=== PATIENT | female | born 1985 | race Caucasian/White ===

== ENCOUNTER → 2018-08-04 16:15 | Outpatient (CLI) | payer OTHER, SELFPAY ==
[2018-08-10 12:20] LABS: HPV HC, High Risk Negative (Negative)
== END ==
PROVIDERS: Family Provider Family Medicine; PCP Family Medicine; Visit Provider Family Medicine
DX: Z12.4 Encounter for screening for malignant neoplasm of cervix (principal)
CPT/HCPCS: 87624; 88175; G0145

== ENCOUNTER 2019-05-03 16:00 | Outpatient (RCR) | payer OTHER, SELFPAY ==
--- NOTE | 2019-03-21 11:50 | HP.OTEVAL_ITS ---
Patient's Visit Information MANUEL WONG is a 33 year old F, referred to Occupational Therapy by SHERMAN Ordonez, with a diagnosis of right wrist tenosynovitis. Date of Evaluation: 03/20/19 Occupational Therapist: Domi Lewis, CHRISTIANO/Stacy, CHT - Subjective Subjective: This 33 year old female was seen for OT eval with dx of right wrist radial styloid tenosynovitis (deQuervain). Pt states pain in over a week and a half, pt states 3 weeks ago she started with pain- nothing made it feel better- work tasks increased pain- pt went [facility] and arrives to therapy with right soft thumb spica brace on. Pt states she is feeling better but still has pain with ADLS and IADLS. pt would like to return to her PLOF with ADLs, IADls, work tasks and her lifting. 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 Pt will demo an increase in lateral and tripod pinch by 2# to increase pts independent with opening baggies, containers at PLOF by D/C. Goal:: Pt will demo an increase in wrist ROM equal to unaffected wrist to return pt to PLOF with grooming, dressing and home mtg tasks by D/C. Goal:: Pt will report pain no greater than 1/10 with use of affected hand with BADLs and IADLs by d/c. Goal:: Pt will demo understanding of joint protection and ergonomics when performing BADLs, IADLs and work tasks by d/c - Rehabilitation General Assessment: pt demo with right wrist positive WHAT Dequervain testing. Pt limited with ROM and strength limiting pts ind. with ADLs and IADLS. pt painful with resisistive tasks. pt would benefit from skilled OT services 2x week for 6 weeks to return pt to PLOF. Pt would benefit from ed. on PRE, wrist ergo with work and lifitng tasks, ICE, brace. Pt ed. on dequervains and given handout on dx pt demo understanding and agree to POC. Rehabilitation Potential: Good - Anticipated Interventions Anticipated Interventions: A/AAROM/PROM, Strengthening, Modalities, Orthoses, Joint Protection/Energy Conservation, Ergonomic Education - Visit Plan Frequency: 2x /Week Duration: 6 Weeks TEXT: Thank you for the opportunity to evaluate your patient. For Medicare and Medicare HMO plans, please review the plan of care and approve it. It will need to be FAXED BACK to us at [phone] for Medicare purposes. Please let me know if there are questions or concerns regarding this plan of care. Physician Signature: Date:__
== END 2019-05-03 19:00 | disposition home or self-care (01) ==
LOC: OT 16:00
PROVIDERS: Family Provider Family Medicine; PCP Family Medicine; Referring Provider Physician Assistant; Visit Provider Physician Assistant
DX: M65.4 Radial styloid tenosynovitis [de Quervain] (principal)
CPT/HCPCS: 97035; 97140; 97165; 97166

== ENCOUNTER → 2019-11-03 10:24 | Outpatient (CLI) | payer OTHER, SELFPAY ==
[2019-11-03 12:31] LABS: Thyroid Stim Hormone (TSH) 0.65 uIU/mL (0.358-3.74)
== END ==
PROVIDERS: PCP Family Medicine; Visit Provider Family Medicine
DX: R53.83 Other fatigue (principal)
CPT/HCPCS: 36415; 84443

== ENCOUNTER 2020-03-30 08:30 | Outpatient (RCR) | payer OTHER, SELFPAY ==
--- NOTE | 2019-06-07 16:18 | MASS.EVAL_ITS ---
Massage Therapy Evaluation: Initial Evaluation Date: 06/06/2019 SUBJECTIVE: Kendy is a 33 year old female who was referred to the [facility] facility for a massotherapy evaluation by Zuleyka Bullock with the diagnosis of back and neck pain and headaches. She presents today with the symptoms of pain, stiffness and tension in the neck, mid back, low back and hips. Kendy reports having a past medical history of neck and occasional low back pain. She reports that her interscapular region has muscle tension radiating pain up to her neck causing headaches. She reports having gradual improvement with exercise and stretching over the last few days. OBJECTIVE: Upon observation Kendy has some posture issues with her head and shoulders fo rward from the neutral position in sitting and standing. After examination and palpation, I found Kendy to have high muscle tension with tenderness and myofascial restrictions in her sub occipitals, levator scapulae, trapezius, rhomboids, scalenes, and thoracic paraspinals. Her QL?s, lumbar paraspinals, piriformis, glute medius and minimus all were very tight with fascial restrictions, tender points and trigger points. The first treatment consisted of a one hour massage to her upper body with myofascial release, muscle stripping, trigger point compression techniques, and cervical manual traction. ASSESSMENT: I feel that Kendy is a good candidate for massotherapy at this time. She had a favorable response to the first treatment with reduction in her muscle aches, pain and tension. She also had improvement in her cervical flexibility and low back flexibility. PLAN: The plan of care was reviewed with the patient. The patient is to be seen on an as needed basis for a total of ten sessions with the recommendation of once every month for a one hour treatment.
--- NOTE | 2020-04-01 15:10 | DS.PCM_ITS ---
Massage Therapy Discharge Summary: Discharge Date: 04/01/2020 Kendy was seen for a massotherapy evaluation on 06/06/2019 with the diagnosis of back and neck pain and headaches. She was treated with ten sessions of massage therapy consisting of deep pressure soft tissue techniques, myofascial release and trigger point compression to her cervical, thoracic, lower back, lower extremities and hips. Kendy responded well to the therapy by reporting decreased tension and pain throughout her neck, shoulders, lower back and hips. Her goals for therapy were met throughout the treatment sessions. At this time this patient is being discharged from our care at [facility] facility.
== END 2020-03-30 19:00 | disposition home or self-care (01) ==
LOC: MASS 08:30
PROVIDERS: PCP Family Medicine; Referring Provider Family Medicine; Visit Provider Family Medicine
DX: M54.9 Dorsalgia, unspecified (principal); M54.2 Cervicalgia
CPT/HCPCS: 97124

== ENCOUNTER 2021-03-22 08:30 | Outpatient (RCR) | payer OTHER, SELFPAY ==
--- NOTE | 2020-05-20 12:05 | MASS.EVAL_ITS ---
Massage Therapy Evaluation: Initial Evaluation Date: 05/17/2020 SUBJECTIVE: Kendy is a 34 year old female who was referred to the [facility] facility for a massotherapy evaluation by Zuleyka Bullock with the diagnosis of back and neck pain and headaches. She presents today with the symptoms of pain, stiffness and tension in the neck, mid back, low back and hips. Kendy reports having a past medical history of neck and occasional low back pain. She reports that her interscapular region has muscle tension radiating pain up to her neck causing headaches. OBJECTIVE: Upon observation Kendy has some posture issues with her head and shoulders forward from the neutral position in sitting and standing. After examination and palpation, I found Kendy to have high muscle tension with tenderness and myofascial restrictions in her sub occipitals, levator scapulae, trapezius, rhomboids, scalenes, and thoracic paraspinals. Her QL?s, lumbar paraspinals, piriformis, glute medius and minimus all were very tight with fascial restrictions, tender points and trigger points. The first treatment consisted of a one hour massage to her upper body with myofascial release, muscle stripping, trigger point compression techniques, and cervical manual traction. ASSESSMENT: I feel that Kendy is a good candidate for massotherapy at this time. She had a favorable response to the first treatment with reduction in her muscle aches, pain and tension. She also had improvement in her cervical flexibility and low back flexibility. PLAN: The plan of care was reviewed with the patient. The patient is to be seen on an as needed basis for a total of ten sessions with the recommendation of once every month for a one hour treatment.
--- NOTE | 2021-03-22 12:31 | DS.PCM_ITS ---
Massage Therapy Discharge Summary: Discharge Date: 03/22/2021 Kendy was seen for a massotherapy evaluation on 05/17/2020 with the diagnosis of back pain, neck pain and headaches. She was treated with nine sessions of massage therapy consisting of deep pressure soft tissue techniques, myofascial release and trigger point compression to his cervical, thoracic, lower back and hips. Kendy responded well to the therapy by reporting decreased tension and pain throughout her neck, shoulders, lower back, lower extremities and hips. Her goals for therapy were met throughout the treatment sessions. At this time this patient is being discharged from our care at [facility] facility.
== END 2021-03-22 19:00 | disposition home or self-care (01) ==
LOC: MASS 08:30
PROVIDERS: PCP Family Medicine; Referring Provider Family Medicine; Visit Provider Family Medicine
DX: M54.2 Cervicalgia (principal)
CPT/HCPCS: 97124

== ENCOUNTER → 2021-11-26 | Outpatient (CLI) | payer OTHER, SELFPAY ==
[2021-12-03 13:07] LABS: Age Gdln ACOG Testing 30-65 (.)
[2021-12-04 15:12] LABS: HPV APTIMA, High Risk Negative (Negative); HPV Reflexed? YES, CHARGE PATIENT
== END | disposition home or self-care (01) ==
LOC: LABSPEC 11-27 06:34
PROVIDERS: PCP Family Medicine; Visit Provider Family Medicine
DX: Z12.4 Encounter for screening for malignant neoplasm of cervix (principal)
CPT/HCPCS: 87624; 88175; G0145

== ENCOUNTER → 2022-01-29 | Outpatient (CLI) | payer OTHER, SELFPAY ==
[2022-01-29 13:07] LABS: Absolute Lymphocyte Count 1.47 X10^3/uL (0.83-4.51); Absolute Neutrophil Count 2.8 X10^3/uL (2.0-7.7); Basophil# 0.03 X10^3/uL; Basophil% 0.6 % (0-1); Eosinophil# 0.02 X10^3/uL; Eosinophils% 0.4 % (0-5); Hematocrit 38.9 % (37-47); Hemoglobin 11.5 g/dL (12.0-15.0); Lymphocyte # 1.47 X10^3/ul (0.83-4.51); Lymphocyte % 31.1 % (19-41); Mean Corp Hgb Conc 29.6 g/dL (32-36); Mean Corpuscular Hgb 22.9 pg (27.0-32.0); Mean Corpuscular Volume 77.5 fL (81-99); Mean Platelet Vol. 10.3 fl (6.2-12.0); Monocyte# 0.37 X10^3/uL; Monocyte% 7.8 % (0-10); NRBC Flagged by Analyzer 0 % (0-5); Neutrophil # 2.82 X10^3/uL (2.7-7.7); Neutrophil % 59.9 % (47-70); Platelet Count 251 K/mm3 (150-450); RBC Distribution Width CV 18.8 % (11.6-14.6); RBC Distribution Width SD 50.6 fl (35.1-43.9); Red Blood Count 5.02 M/mm3 (4.2-5.4); White Blood Count 4.7 K/mm3 (4.4-11.0)
[2022-01-29 13:09] LABS: Ferritin 5 ng/mL (8-252); Iron 25 ug/dL (50-170); Iron Binding Capacity,Total 520 ug/dL (250-450); PERCENT IRON SATURATION 4.8 % (15.0-55.0)
== END | disposition home or self-care (01) ==
PROVIDERS: PCP Family Medicine; Referring Provider Family Medicine; Visit Provider Family Medicine
DX: D50.9 Iron deficiency anemia, unspecified (principal)
CPT/HCPCS: 36415; 82728; 83540; 83550; 85025

== ENCOUNTER → 2023-02-12 | Outpatient (CLI) | payer OTHER, SELFPAY ==
[2023-02-12 12:07] LABS: Absolute Lymphocyte Count 1.59 X10^3/uL (0.83-4.51); Absolute Neutrophil Count 2.4 X10^3/uL (2.0-7.7); Basophil# 0.04 X10^3/uL; Basophil% 0.9 % (0-1); Eosinophil# 0.02 X10^3/uL; Eosinophils% 0.4 % (0-5); Hematocrit 40.7 % (37-47); Hemoglobin 12.1 g/dL (12.0-15.0); Lymphocyte # 1.59 X10^3/ul (0.83-4.51); Lymphocyte % 35.3 % (19-41); Mean Corp Hgb Conc 29.7 g/dL (32-36); Mean Corpuscular Hgb 24.6 pg (27.0-32.0); Mean Corpuscular Volume 82.7 fL (81-99); Mean Platelet Vol. 11.7 fl (6.2-12.0); Monocyte# 0.42 X10^3/uL; Monocyte% 9.3 % (0-10); NRBC Flagged by Analyzer 0 % (0-5); Neutrophil # 2.39 X10^3/uL (2.7-7.7); Platelet Count 243 K/mm3 (150-450); RBC Distribution Width CV 15.9 % (11.6-14.6); RET-HE 25.8 pg (30-35); Red Blood Count 4.92 M/mm3 (4.2-5.4); Reticulocyte Count 0.96 % (0.5-1.5); White Blood Count 4.5 K/mm3 (4.4-11.0)
[2023-02-12 12:25] LABS: Ferritin 5 ng/mL (8-252); Iron 24 ug/dL (50-170); Iron Binding Capacity,Total 476 ug/dL (250-450)
[2023-02-12 13:01] LABS: Vitamin B12 394 pg/mL (211-911)
== END | disposition home or self-care (01) ==
PROVIDERS: PCP Family Medicine; Referring Provider Family Medicine; Visit Provider Family Medicine
DX: D50.9 Iron deficiency anemia, unspecified (principal)
CPT/HCPCS: 36415; 82607; 82728; 82746; 83540; 83550; 85025; 85045

== ENCOUNTER → 2023-12-21 | Outpatient (CLI) | payer OTHER, SELFPAY ==
[2023-12-21 08:39] LABS: Ferritin 3 ng/mL (8-252); Iron 14 ug/dL (50-170); Iron Binding Capacity,Total 496 ug/dL (250-450); PERCENT IRON SATURATION 2.8 % (15.0-55.0)
== END | disposition home or self-care (01) ==
PROVIDERS: PCP Family Medicine; Referring Provider Family Medicine; Visit Provider Family Medicine
DX: Z00.00 Encounter for general adult medical examination without abnormal findings (principal); D50.9 Iron deficiency anemia, unspecified
CPT/HCPCS: 36415; 82533; 82728; 83540; 83550

== ENCOUNTER → 2024-03-01 | Outpatient (CLI) | payer OTHER, SELFPAY ==
--- NOTE | 2024-03-01 07:15 | BI_ITS ---
MAMMOGRAPHY - BILATERAL SCREENING 3-D TOMOSYNTHESIS REASON FOR EXAM: Female, 38 years old. Routine screening PERTINENT HISTORY: Mother with breast cancer.. TECHNIQUE: 2-D mammograms and 3-D Tomosynthesis of the breast (s) were performed. CAD was performed. COMPARISON: None. Baseline examination. FINDINGS: The breast composition is heterogeneously dense that can obscure small breast masses. Scattered benign punctate calcifications are seen in the right breast. No dense spiculated masses or suspicious microcalcifications are identified. No architectural distortion is identified. There is no skin thickening or retraction. BI/SCRN MAMM (CAD)W/RENATO BILAT IMPRESSION: No mammographic signs of malignancy. Routine yearly mammograms recommended. ASSESSMENT CATEGORY: BIRADS Category 2: Benign. A letter regarding these results will be sent to the patient by the facility within 30 days. FOLLOW UP RECOMMENDATION: Yearly follow up mammogram recommended. (A) Approximately 10% of breast cancers are not detected by mammography. A normal mammogram should not delay biopsy of a clinically suspicious abnormality. Electronically Signed: Joe Howard MD at 8:37 EST ,
== END | disposition home or self-care (01) ==
LOC: OPBI 07:11
PROVIDERS: PCP Family Medicine; Referring Provider Family Medicine; Visit Provider Family Medicine
DX: Z12.31 Encounter for screening mammogram for malignant neoplasm of breast (principal)
CPT/HCPCS: 77063; 77067

== ENCOUNTER → 2024-11-15 | Outpatient (CLI) | payer OTHER, SELFPAY ==
[2024-11-15 10:24] LABS: Ferritin 5 ng/mL (22-378); Iron 23 ug/dL (50-170); Iron Binding Capacity,Total 441 ug/dL (250-450); Iron Binding Capacity,Unsat 418 ug/dL (228-428)
== END | disposition home or self-care (01) ==
LOC: PAVLAB 07:51
PROVIDERS: PCP Family Medicine; Referring Provider Family Medicine; Visit Provider Family Medicine
DX: D50.9 Iron deficiency anemia, unspecified (principal); N93.9 Abnormal uterine and vaginal bleeding, unspecified
CPT/HCPCS: 82728; 83540; 83550; 84443

== ENCOUNTER 2024-12-14 06:52 | Outpatient (CLI) | payer OTHER, SELFPAY ==
--- OUTSIDE RECORDS SUMMARY | 2024-12-14 06:54 | XMS RPT_ITS | CCD ---
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 Gardiner Primary Care Provider Assessment, Health Risk Attending Provider Unava ilable Assessment, Health Risk Referring Provider Deliava iljane Bullock MD, Dr. Gardiner Attending Provider Dr. Zuleyka Bullock MD Referring Provider [phone] Zuleyka Bullock Primary Care Unavailable Zuleyka Bullock Attending Unavailable Zuleyka Bullock Referring Unavailable Zuleyka Bullock Primary Care Unavailable Assessment, Health Risk Attending Unavaila ble Assessment, Health Risk Referring Unavaila ble Zuleyka Bullock Primary Care Unavailable Zuleyka Bullock Attending Unavailable Zuleyka Bullock Referring Unavailable Zuleyka Bullock Primary Care Unavailable Zuleyka Bullock Attending Unavailable Zuleyka Bullock Referring Unavailable Zuleyka Bullock Primary Care Unavailable Zuleyka Bullock Attending Unavailable Zuleyka Bullock Referring Unavailable Medications Current Medications Medication Drug Class(es) Dates Sig (Normalized) Sig (Original) Multivitamin (Daily Multi-Vitamin) tablet (6 sources) Start: 03-08-2019 Multivitamin (Daily Multi-Vitamin) tablet Active 1 {tbl} PO DAILY March 08, 2019 1:00am Start: 03-08-2019 take 1 tablet by maryellen th once daily Multivitamin (Daily Multi-Vitamin) tablet Active 1 TABLET PO DAILY March 08, 2019 12:00am Start: 03-08-2019 take 1 tablet by maryellen th once daily Multivitamin (Daily Multi-Vitamin) tablet Active 1 TABLET PO DAILY March 08, 2019 1:00am predniSONE 10 mg oral tablet (6 sources) Start: 03-08-2019 take 4 tablets by mouth once daily, then take 3 tablets by mouth once daily, then take 2 tablets by mouth once daily, then take 1 tablet by mouth once daily Prednisone 10 mg tablet Active 10 mg PO DAILY March 08, 2019 1:00am 4 tablets daily x3 days, then 3 tablets daily x3 days, then 2 tablets daily x3 days, then 1 tablet daily x3 days Problems Active Problems Problem Classification Problem Date Documented Da te Episodic/Chronic Deficiency and other anemia (1 source) Iron deficiency anemia, unspecified; Translations: [Iron deficiency anemia, unspecified] Onset: 11-23-2024 Episodic Other bone disease and musculoskeletal deformities (18 sources) Segmental and somatic dysfunction; Translations: [Segmental and somatic dysfunction of cervical region] 06-14-2017 Episodic Other connective tissue disease (6 sources) Tenosynovitis of right radial styloid; Translations: [Radial styloid tenosynovitis [de Quervain]] 03-08-2019 Episodic Past or Other Problems Problem Classification Problem Date Documented Da te Episodic/Chronic Other screening for suspected conditions (not mental disorders or infectious disease) (1 source) Encounter for screening mammogram for malignant neoplasm of breast; Translations: [Encounter for screening mammogram for malignant neoplasm of breast] Onset: 03-26-2024 Episodic Results Test Name Value Interpretation Reference Range Facility Ferritinon 11-15-2024 Ferritin [Mass/Vol] 5 ng/mL Low 22-378 [facility] Comment on above: Order Comment: ADD O N FROM YESTERDAY, THANKS Performed By: #### L 503.6550, L501.9520, L503.6030 #### [facility] [address] [place], [place], [id number] Iron measurement (mass/mass) Ordered By: Zuleyka Bullock on 11-15-2024 Iron (Unsp spec) [Mass/Mass] 23 ug/dL Low 50-170 [facility] Iron+Iron Binding Capacityon 11-15-2024 Iron [Mass/Vol] 23 ug/dL Low 50-170 [facility] Comment on above: Order Comment: ADD O N FROM YESTERDAY, THANKS Performed By: #### L 503.6550, L501.9520, L503.6030 #### [facility] [address] [place], [address] IRON SATURATION 5.0 Low 13-59 [facility] Comment on above: Order Comment: ADD O N FROM YESTERDAY, THANKS Performed By: #### L 503.6550, L501.9520, L503.6030 #### [facility] [address] [place], [address] TIBC 441 ug/dL Normal 250-450 [facility] Comment on above: Order Comment: ADD O N FROM YESTERDAY, THANKS Performed By: #### L 503.6550, L501.9520, L503.6030 #### [facility] [address] [place], [address] UIBC 418 ug/dL Normal 228-428 [facility] Comment on above: Order Comment: ADD O N FROM YESTERDAY, THANKS Performed By: #### L 503.6550, L501.9520, L503.6030 #### [facility] [address] [place], [address] No Panel InformationOrdered By: Zuleyka Bullock on 11-15-2024 Unsaturated Iron Binding Capacity 418 ug/dL 228-428 [facility] Serum or plasma ferritin michaela surement (mass/volume)Ordered By: Zuleyka Bullock on 11-15-2024 Ferritin [Mass/Vol] 5 ng/mL Low 22-378 [facility] Serum or plasma iron saturat ion measurement (mass fraction)Ordered By: Zuleyka Bullock on 11-15-2024 Iron saturation [Mass fraction] 5.0 % Low 13-59 [facility] TSH DL <= 0.005 mIU/L QnOrde red By: Zuleyka Bullock on 11-15-2024 TSH Qn 0.945 uIU/mL 0.300-4.200 [facility] Thyroid Stim Hormone (TSH)on 11-15-2024 TSH 0.945 uIU/mL Normal 0.300-4.200 [facility] Comment on above: Order Comment: ADD O N FROM YESTERDAY, THANKS Performed By: #### L 503.9335, L501.0330, L503.8315 #### [facility] [address] [place], [address] Absolute lymphocyte countOrd ered By: HEALTH ASSESSMENT on 11-13-2024 Lymphocytes Auto (Unsp spec) [#/Vol] 1.21 10*3/uL 0.83-4.51 [facility] Absolute neutrophil countOrd ered By: HEALTH ASSESSMENT on 11-13-2024 Neutrophils (Bld) [#/Vol] 3.5 10*3/uL 2.0-7.7 [facility] Absolute nucleated red blood cell countOrdered By: HEALTH ASSESSMENT on 11-13-2024 Nucleated RBC (Bld) [#/Vol] 0.00 10*3/uL 0-5 [facility] Anion gap in Serum or Plasma Ordered By: HEALTH ASSESSMENT on 11-13-2024 Anion gap [Moles/Vol] 10 mmol/L 5-15 [facility] BUN/creatinine ratioOrdered By: HEALTH ASSESSMENT on 11-13-2024 Urea nitrogen/Creatinine [Mass ratio] 10.3 mg/mg 10-20 [facility] Bilirubin Test strip Ql (U)O rdered By: HEALTH ASSESSMENT on 11-13-2024 Bilirubin Ql (U) Negative Negative [facility] Bilirubin directOrdered By: HEALTH ASSESSMENT on 11-13-2024 Bilirubin.direct [Mass/Vol] 0.24 mg/dL 0.00-0.30 [facility] Bilirubin, totalOrdered By: HEALTH ASSESSMENT on 11-13-2024 Bilirubin [Mass/Vol] 0.64 mg/dL 0.00-1.30 [facility] Blood band neutrophil count as percentage of total leukocytesOrdered By: HEALTH ASSESSMENT on 11-13-2024 Band form neutrophils/100 WBC (Bld) 67.3 % 47-70 [facility] CBC, Employeeon 11-13-2024 Absolute Lymph 1.21 X10 3/uL Normal 0.83-4.51 [facility] Comment on above: Performed By: #### L 100.0200, L400.0100, L500.2900 #### [facility] [address] [place], [address] Absolute Neut 3.5 X10 3/uL Normal 2.0-7.7 [facility] Comment on above: Performed By: #### L 100.0200, L400.0100, L500.2900 #### [facility] [address] [place], [address] Basophils/100 WBC (Bld) 0.6 % Normal 0-1 [facility] Comment on above: Performed By: #### L 100.0200, L400.0100, L500.2900 #### [facility] [address] [place], [address] Eosinophils/100 WBC (Bld) 0.6 % Normal 0-5 [facility] Comment on above: Performed By: #### L 100.0200, L400.0100, L500.2900 #### [facility] [address] [place], [address] Erythrocyte distribution width (RBC) [Ratio] 17.1 % High 11.6-14.6 [facility] Comment on above: Performed By: #### L 100.0200, L400.0100, L500.2900 #### [facility] [address] [place], [address] Hematocrit (Bld) [Volume fraction] 31.4 % Low 37-47 [facility] Comment on above: Performed By: #### L 100.0200, L400.0100, L500.2900 #### [facility] [address] [place], [address] Hemoglobin (Bld) [Mass/Vol] 9.0 g/dL Low 12.0-15.0 [facility] Comment on above: Performed By: #### L 100.0200, L400.0100, L500.2900 #### [facility] [address] [place], [address] Lymphocytes/100 WBC (Bld) 23.4 % Normal 19-41 [facility] Comment on above: Performed By: #### L 100.0200, L400.0100, L500.2900 #### [facility] [address] [place], [address] MCH (RBC) [Entitic mass] 20.7 pg Low 27.0-32.0 [facility] Comment on above: Performed By: #### L 100.0200, L400.0100, L500.2900 #### [facility] [address] [place], [address] MCHC (RBC) [Mass/Vol] 28.7 g/dL Low 32-36 [facility] Comment on above: Performed By: #### L 100.0200, L400.0100, L500.2900 #### [facility] [address] [place], [address] MCV (RBC) [Entitic vol] 72.4 fL Low 81-99 [facility] Comment on above: Performed By: #### L 100.0200, L400.0100, L500.2900 #### [facility] [address] [place], [address] Monocytes/100 WBC (Bld) 7.9 % Normal 0-10 [facility] Comment on above: Performed By: #### L 100.0200, L400.0100, L500.2900 #### [facility] [address] [place], [address] Neutrophils/100 WBC (Bld) 67.3 % Normal 47-70 [facility] Comment on above: Performed By: #### L 100.0200, L400.0100, L500.2900 #### [facility] [address] [place], [address] NRBC # 0.00 10 3/uL Normal 0-5 [facility] Comment on above: Performed By: #### L 100.0200, L400.0100, L500.2900 #### [facility] [address] [place], [address] Nucleated RBC (Bld) [#/Vol] 0 10*3/uL Normal 0-5 [facility] Comment on above: Performed By: #### L 100.0200, L400.0100, L500.2900 #### [facility] [address] [place], [address] Platelet mean volume (Bld) [Entitic vol] 10.7 fL Normal 6.2-12.0 [facility] Comment on above: Performed By: #### L 100.0200, L400.0100, L500.2900 #### [facility] [address] [place], [address] Platelets (Bld) [#/Vol] 261 10*3/uL Normal 150-450 [facility] Comment on above: Performed By: #### L 100.0200, L400.0100, L500.2900 #### [facility] [address] [place], [address] RBC (Bld) [#/Vol] 4.34 10*6/uL Normal 4.2-5.4 [facility] Comment on above: Performed By: #### L 100.0200, L400.0100, L500.2900 #### [facility] [address] [place], [address] RDW SD 44.0 fl High 35.1-43.9 [facility] Comment on above: Performed By: #### L 100.0200, L400.0100, L500.2900 #### [facility] [address] [place], [address] WBC (Bld) [#/Vol] 5.2 10*3/uL Normal 4.4-11.[address] [facility] Comment on above: Performed By: #### L 100.0200, L400.0100, L500.2900 #### [facility] [address] [place], [place], [id number] Calculated very low density lipoprotein (VLDL) cholesterol measurementOrdered By: HEALTH ASSESSMENT on 11-13-2024 Calculated very low density lipoprotein (VLDL) cholesterol measurement 18 mg/dL 5-40 [facility] Carbon dioxide, total [Moles /volume] in Central venous bloodOrdered By: HEALTH ASSESSMENT on 11-13-2024 CO2 [Moles/Vol] 24.1 mmol/L 21.0-32.0 [facility] Chloride assayOrdered By: HE ALTH ASSESSMENT on 11-13-2024 Chloride [Moles/Vol] 104 mmol/L 98-108 [facility] Employee Profileon CHOL:HDL 4.14 Normal [facility] Comment on above: Performed By: #### L 100.0200, L400.0100, L500.2900 #### [facility] [address] [place], [place], [id number] Cholesterol [Mass/Vol] 156 mg/dL Normal <=200 [facility] Comment on above: Result Comment: Chol esterol level, Desirable <200 mg/dL Borderline high cholesterol 200-239 mg/dL High cholesterol >=240 mg/dL Recommendations of the NCEP Adult Treatment Panel for the following risk-cutoff thresholds for the [place] population. Performed By: #### L 100.0200, L400.0100, L500.2900 #### [facility] [address] [place], [place], [id number] Cholesterol in HDL [Mass/Vol] 38 mg/dL Low [facility] Comment on above: Result Comment: Yolanda onal Cholesterol Education Program (NCEP) guidelines: <40 mg/dL: Low HDL-cholesterol (major risk factor for CHD) >= 60 mg/dL: High HDL-cholesterol (negative risk factor for CHD) HDL-cholesterol is affected by a number of factors, e.g. smoking, exercise, hormones, sex and age. Performed By: #### L 100.0200, L400.0100, L500.2900 #### [facility] [address] [place], [address] Cholesterol in LDL [Mass/Vol] 100 mg/dL Normal [facility] Comment on above: Result Comment: Bord shxicu=409-941 mg/dL Higher Hgkj=109 mg/dL or greater Friedwald Equation for LDL-C Performed By: #### L 100.0200, L400.0100, L500.2900 #### [facility] [address] [place], [address] Cholesterol in VLDL [Mass/Vol] 18 mg/dL Normal 5-40 [facility] Comment on above: Performed By: #### L 100.0200, L400.0100, L500.2900 #### [facility] [address] [place], [address] LDH 164 U/L Normal 84-246 [facility] Comment on above: Performed By: #### L 100.0200, L400.0100, L500.2900 #### [facility] [address] [place], [address] Phosphate [Mass/Vol] 3.3 mg/dL Normal 2.7-4.5 [facility] Comment on above: Performed By: #### L 100.0200, L400.0100, L500.2900 #### [facility] [address] [place], [address] Triglyceride [Mass/Vol] 90 mg/dL Normal [facility] Comment on above: Result Comment: The drugs N-Acetylcysteine and Metamizole may falsely depress this assay. Normal range: <150 mg/dL Borderline High: 150-199 mg/dL High: 200-499 mg/dL Very High: >500 mg/dL Performed By: #### L 100.0200, L400.0100, L500.2900 #### [facility] [address] [place], [address] URIC 3.5 mg/dL Normal 2.6-6.0 [facility] Comment on above: Result Comment: The drugs N-Acetylcysteine and Metamizole may falsely depress this assay. Performed By: #### L 100.0200, L400.0100, L500.2900 #### [facility] [address] [place], [address] Erythrocyte distribution wid th ratioOrdered By: HEALTH ASSESSMENT on 11-13-2024 Erythrocyte distribution width (RBC) [Ratio] 17.1 % High 11.6-14.6 [facility] Erythrocyte distribution wid th standard deviationOrdered By: HEALTH ASSESSMENT on 11-13-2024 Erythrocyte distribution width (RBC) [Ratio] 44.0 fl High 35.1-43.9 [facility] Glomerular filtration rate ( GFR) estimation/1.73 sq m using serum, plasma, or whole bOrdered By: HEALTH ASSESSMENT on 11-13-2024 GFR/1.73 sq M.predicted among non-blacks MDRD (S/P/Bld) [Vol rate/Area] 113 mL/min/{1.73_m2} >60 [facility] Comment on above: mL/min/1.73m2 CKD-EP I Creatinine Equation (2020) Hematocrit Auto (Bld) [Volum e fraction]Ordered By: HEALTH ASSESSMENT on 11-13-2024 Hematocrit (Bld) [Volume fraction] 31.4 % Low 37-47 [facility] Hemoglobin measurementOrdere d By: HEALTH ASSESSMENT on 11-13-2024 Hemoglobin (Bld) [Mass/Vol] 9.0 g/dL Low 12.0-15.0 [facility] Ketones Test strip Ql (U)Ord ered By: HEALTH ASSESSMENT on 11-13-2024 Ketones Ql (U) Negative Negative [facility] LDL calc ser/plasOrdered By: HEALTH ASSESSMENT on 11-13-2024 Cholesterol in LDL [Mass/Vol] 100 mg/dL [facility] Comment on above: Nwprgugqhk=273-934 m g/dL & Higher Jsaf=187 mg/dL or greaterFriedwald Equation for LDL-C Laboratory - Chemistry and C hemistry - challengeOrdered By: HEALTH ASSESSMENT on 11-13-2024 AST [Catalytic activity/Vol] 22 U/L <32 [facility] Lactate dehydrogenase (LDH) measurementOrdered By: HEALTH ASSESSMENT on 11-13-2024 LDH [Catalytic activity/Vol] 164 U/L 84-246 [facility] MCV (mean corpuscular volume ) determinationOrdered By: HEALTH ASSESSMENT on 11-13-2024 MCV (RBC) [Entitic vol] 72.4 fL Low 81-99 [facility] Mean corpuscular hemoglobin (MCH) determinationOrdered By: HEALTH ASSESSMENT on 11-13-2024 MCH (RBC) [Entitic mass] 20.7 pg Low 27.0-32.0 [facility] Mean corpuscular hemoglobin concentration (MCHC) determinationOrdered By: HEALTH ASSESSMENT on 11-13-2024 MCHC (RBC) [Mass/Vol] 28.7 g/dL Low 32-36 [facility] Mean platelet volume determi nationOrdered By: HEALTH ASSESSMENT on 11-13-2024 Platelet mean volume (Bld) [Entitic vol] 10.7 fL 6.2-12.0 [facility] Nitrite Test strip Ql (U)Ord ered By: HEALTH ASSESSMENT on 11-13-2024 Nitrite Ql (U) Negative Negative [facility] Nucleated red blood cell per centageOrdered By: HEALTH ASSESSMENT on 11-13-2024 Nucleated RBC/100 WBC (Bld) [Ratio] 0 % 0-5 [facility] Platelet countOrdered By: HE ALTH ASSESSMENT on 11-13-2024 Platelets (Bld) [#/Vol] 261 10*3/uL 150-450 [facility] Potassium measurement (mass/ volume)Ordered By: HEALTH ASSESSMENT on 11-13-2024 Potassium (Unsp spec) [Mass/Vol] 3.8 mmol/L 3.3-5.1 [facility] Protein Test strip Ql (U)Ord ered By: HEALTH ASSESSMENT on 11-13-2024 Protein Ql (U) Negative Negative [facility] RBC Auto (Bld) [#/Vol]Ordere d By: HEALTH ASSESSMENT on 11-13-2024 RBC (Bld) [#/Vol] 4.34 10*6/uL 4.2-5.4 [facility] Screening total cholesterol/ high density lipoprotein (HDL) cholesterol ratioOrdered By: HEALTH ASSESSMENT on 11-13-2024 Cholesterol.total/Choles terol in HDL [Mass ratio] 4.14 {ratio} [facility] Serum creatinine measurement (mass/volume)Ordered By: HEALTH ASSESSMENT on 11-13-2024 Creatinine [Mass/Vol] 0.69 mg/dL Low 0.70-1.20 [facility] Serum globulin measurementOr dered By: HEALTH ASSESSMENT on 11-13-2024 Globulin (S) [Mass/Vol] 2.7 g/dL 2.2-4.2 [facility] Serum glucose measurement (m ass/volume)Ordered By: HEALTH ASSESSMENT on 11-13-2024 Glucose [Mass/Vol] 91 mg/dL 70-[address] [facility] Serum or plasma alanine welch otransferase (ALT) measurementOrdered By: HEALTH ASSESSMENT on 11-13-2024 ALT [Catalytic activity/Vol] 15 U/L <35 [facility] Serum or plasma albumin heidi urement (mass/volume)Ordered By: HEALTH ASSESSMENT on 11-13-2024 Albumin [Mass/Vol] 4.4 g/dL 3.5-5.[address] [facility] Serum or plasma albumin/glob ulin mass ratioOrdered By: HEALTH ASSESSMENT on 11-13-2024 Albumin/Globulin [Mass ratio] 1.6 {ratio} 0.9-2.4 [facility] Serum or plasma alkaline robert sphatase measurementOrdered By: HEALTH ASSESSMENT on 11-13-2024 ALP [Catalytic activity/Vol] 57 U/L 35-104 [facility] Serum or plasma calcium heidi urement (mass/volume)Ordered By: HEALTH ASSESSMENT on 11-13-2024 Calcium [Mass/Vol] 9.1 mg/dL 7.6-11.[address] [facility] Serum or plasma cholesterol in HDL measurement (mass/volume)Ordered By: HEALTH ASSESSMENT on 11-13-2024 Cholesterol in HDL [Mass/Vol] 38 mg/dL Low >40 [facility] Comment on above: National Cholesterol Education Program (NCEP) guidelines:<40 mg/dL: Low HDL-cholesterol (major risk factor for CHD)>= 60 mg/dL: High HDL-cholesterol (negative risk factor for CHD)HDL-cholesterol is affected by a number of factors, e.g. smoking, exercise, hormones, sex and age. Serum or plasma cholesterol measurement (mass/volume)Ordered By: HEALTH ASSESSMENT on 11-13-2024 Cholesterol [Mass/Vol] 156 mg/dL <201 [facility] Comment on above: Cholesterol level, D esirable <200 mg/dLBorderline high cholesterol 200-239 mg/dLHigh cholesterol >=240 mg/dLRecommendations of the NCEP Adult Treatment Panel for the following risk-cutoff thresholds for the [place] population. Serum or plasma urea nitroge n measurement (mass/volume)Ordered By: HEALTH ASSESSMENT on 11-13-2024 Urea nitrogen [Mass/Vol] 7 mg/dL 4-19 [facility] Serum or plasma uric acid me asurement (mass/volume)Ordered By: HEALTH ASSESSMENT on 11-13-2024 Urate [Mass/Vol] 3.5 mg/dL 2.6-6.0 [facility] Comment on above: The drugs N-Acetylcy steine and Metamizole may falsely depress this assay. Sodium levelOrdered By: [facility] on 11-13-2024 Sodium [Moles/Vol] 138 mmol/L 133-[address] [facility] Total proteinOrdered By: [facility] ASSESSMENT on 11-13-2024 Protein [Mass/Vol] 7.1 g/dL 5.9-8.[address] [facility] Triglycerides measurementOrd ered By: HEALTH ASSESSMENT on 11-13-2024 Triglyceride [Mass/Vol] 90 mg/dL <199 [facility] Comment on above: The drugs N-Acetylcy steine and Metamizole may falsely depress this assay. Normal range: <150 mg/dLBorderline High: 150-199 mg/dLHigh: 200-499 mg/dLVery High: >500 mg/dL Urinalysis, Employeeon 11-13 BILIRUBIN URINE Negative Normal Negative [facility] Comment on above: Order Comment: CLEAN CATCH Performed By: #### L 100.0200, L400.0100, L500.2900 #### [facility] [address] [place], [address] Clarity (U) Clear Normal Clear [facility] Comment on above: Order Comment: CLEAN CATCH Performed By: #### L 100.0200, L400.0100, L500.2900 #### [facility] [address] [place], [address] Color (U) Straw Normal Yellow [facility] Comment on above: Order Comment: CLEAN CATCH Performed By: #### L 100.0200, L400.0100, L500.2900 #### [facility] [address] [place], [address] GLUCOSE, UR Normal Normal Normal [facility] Comment on above: Order Comment: CLEAN CATCH Performed By: #### L 100.0200, L400.0100, L500.2900 #### [facility] [address] [place], [address] KETONE UR Negative Normal Negative [facility] Comment on above: Order Comment: CLEAN CATCH Performed By: #### L 100.0200, L400.0100, L500.2900 #### [facility] [address] [place], [address] LEUK ESTERASE Negative Normal Negative [facility] Comment on above: Order Comment: CLEAN CATCH Performed By: #### L 100.0200, L400.0100, L500.2900 #### [facility] [address] [place], [address] Nitrite Ql (U) Negative Normal Negative [facility] Comment on above: Order Comment: CLEAN CATCH Performed By: #### L 100.0200, L400.0100, L500.2900 #### [facility] [address] [place], [address] OCCULT BLOOD-UR 10 /ul Abnormal Negative [facility] Comment on above: Order Comment: CLEAN CATCH Performed By: #### L 100.0200, L400.0100, L500.2900 #### [facility] [address] [place], [address] pH UR 7.0 Normal 5.0 - 8.0 [facility] Comment on above: Order Comment: CLEAN CATCH Performed By: #### L 100.0200, L400.0100, L500.2900 #### [facility] [address] [place], [address] PROT DIPSTX Negative Normal Negative [facility] Comment on above: Order Comment: CLEAN CATCH Performed By: #### L 100.0200, L400.0100, L500.2900 #### [facility] [address] [place], [address] SP.GR. DIPSTX 1.005 Normal 1.002-1.030 [facility] Comment on above: Order Comment: CLEAN CATCH Performed By: #### L 100.0200, L400.0100, L500.2900 #### [facility] [address] [place], [address] UROBILI Normal Normal Normal [facility] Comment on above: Order Comment: CLEAN CATCH Performed By: #### L 100.0200, L400.0100, L500.2900 #### [facility] [address] [place], [address] Urine clarityOrdered By: A [facility] ASSESSMENT on 11-13-2024 Clarity (U) Clear Clear [facility] Urine color determinationOrd ered By: HEALTH ASSESSMENT on 11-13-2024 Color (U) Straw Yellow [facility] Urine glucose detectionOrder ed By: HEALTH ASSESSMENT on 11-13-2024 Glucose Ql (U) Normal mg/dl Normal [facility] Urine leukocyte esterase det ection by dipstickOrdered By: HEALTH ASSESSMENT on 11-13-2024 Leukocyte esterase Test strip Ql (U) Negative Negative [facility] Urine pHOrdered By: HEALTH A SSESSMENT on 11-13-2024 pH (U) 7.0 [pH] 5.0 - 8.0 [facility] Urine specific gravity measu rementOrdered By: HEALTH ASSESSMENT on 11-13-2024 Specific gravity (U) [Rel density] 1.005 1.002-1.030 [facility] Urine urobilinogen measureme ntOrdered By: HEALTH ASSESSMENT on 11-13-2024 Urobilinogen Ql (U) Normal mg/dl Normal [facility] White blood cell (WBC) count Ordered By: HEALTH ASSESSMENT on 11-13-2024 WBC (Bld) [#/Vol] 5.2 10*3/uL 4.4-11.[address] [facility] SCRN MAMM (CAD)W/RENATO BILATo n 03-01-2024 SCRN MAMM (CAD)W/RENATO BILAT [facility] Imaging Services [address] [place] [address] SCRN MAMM (CAD)W/RENATO BILAT MR#: [id number] Acct: [id number] Name: MANUEL WONG Rep #: [id number] : 1985 F 38 From: Michel Howard MD PCP: Dr. Zuleyka Bullock MD Status: REG [facility] Study: SCRN MAMM (CAD)W/RENATO BILAT Date of Exam: 02/04 10/26 Exam# [id number] Ordering Dr: Zuleyka Bullock MD [id number] MAMMOGRAPHY - BILATERAL SCREENING 3-D TOMOSYNTHESIS REASON FOR EXAM: Female, 38 years old. Routine screening PERTINENT HISTORY: Mother with breast cancer.. TECHNIQUE: 2-D mammograms and 3-D Tomosynthesis of the breast (s) were performed. CAD was performed. COMPARISON: None. Baseline examination. FINDINGS: The breast composition is heterogeneously dense that can obscure small breast masses. Scattered benign punctate calcifications are seen in the right breast. No dense spiculated masses or suspicious microcalcifications are identified. No architectural distortion is identified. There is no skin thickening or retraction. BI/SCRN MAMM (CAD)W/RENATO BILAT IMPRESSION: No mammographic signs of malignancy. Routine yearly mammograms recommended. ASSESSMENT CATEGORY: BIRADS Category 2: Benign. A letter regarding these results will be sent to the patient by the facility within 30 days. FOLLOW UP RECOMMENDATION: Yearly follow up mammogram recommended. (A) Approximately 10% of breast cancers are not detected by mammography. A normal mammogram should not delay biopsy of a clinically suspicious abnormality. Electronically Signed: Joe Howard MD at 8:37 EST , CC: Dr. Zuleyka Bullock MD Specialist Field Engineer: Signed Normal [facility] CORTISOL SERUMon 12-21-2023 CORTISOL 14.20 ug/dL Normal 3.44-22.45 [facility] Comment on above: Result Comment: Adul t (AM) 5.27 - 22.45 ug/dL Adult (PM) 3.44 - 16.76 ug/dL Performed By: #### L 503.6030, L503.6550, L509.6000 #### [facility] [address] [facility] [address] Ferritinon 12-21-2023 Ferritin [Mass/Vol] 3 ng/mL Low 8-252 [facility] Comment on above: Performed By: #### L 503.6030, L503.6550, L509.6000 #### [facility] [address] [place], [address] Iron+Iron Binding Capacityon 12-21-2023 Iron [Mass/Vol] 14 ug/dL Low 50-170 [facility] Comment on above: Performed By: #### L 503.6030, L503.6550, L509.6000 #### [facility] [address] [place], [address] IRON SATURATION 2.8 Low 15.0-55.0 [facility] Comment on above: Performed By: #### L 503.6030, L503.6550, L509.6000 #### [facility] [address] [place], [place], [id number] TIBC 496 ug/dL High 250-450 [facility] Comment on above: Performed By: #### L 503.6030, L503.6550, L509.6000 #### [facility] [address] [place], [place], [id number] Absolute lymphocyte countOrd ered By: Zuleyka Bullock on 02-12-2023 Lymphocytes Auto (Unsp spec) [#/Vol] 1.59 10*3/uL 0.83-4.51 [facility] Basophil percentageOrdered B y: Zuleyka Bullock on 02-12-2023 Basophils/100 WBC (Bld) 0.9 % 0-1 [facility] Eosinophils/100 WBC (Bld) 0.4 % 0-5 [facility] Neutrophils (Bld) [#/Vol] 2.4 10*3/uL 2.0-7.7 [facility] Neutrophils/100 WBC (Bld) 53.0 % 47-70 [facility] WBC (Bld) [#/Vol] 4.5 10*3/uL 4.4-11.[address] [facility] Blood erythrocytes count (nu mber/volume)Ordered By: Zuleyka Bullock on 02-12-2023 RBC (Bld) [#/Vol] 4.92 10*6/uL 4.2-5.4 [facility] Blood hemoglobin measurement (mass/volume)Ordered By: Zuleyka Bullock on 02-12-2023 Hemoglobin (Bld) [Mass/Vol] 12.1 g/dL 12.0-15.0 [facility] Blood lymphocytes/100 leukoc ytesOrdered By: Zuleyka Bullock on 02-12-2023 Lymphocytes/100 WBC (Bld) 35.3 % 19-41 [facility] Blood monocytes/100 leukocyt esOrdered By: Zuleyka Bullock on 02-12-2023 Monocytes/100 WBC (Bld) 9.3 % 0-10 [facility] Blood platelet mean volumeOr dered By: Zuleyka Bullock on 02-12-2023 Platelet mean volume (Bld) [Entitic vol] 11.7 fL 6.2-12.0 [facility] Determination of erythrocyte mean corpuscular volume (MCV)Ordered By: Zuleyka Bullock on 02-12-2023 MCV (RBC) [Entitic vol] 82.7 fL 81-99 [facility] Hematocrit Auto (Bld) [Volum e fraction]Ordered By: Zuleyka Bullock on 02-12-2023 Hematocrit (Bld) [Volume fraction] 40.7 % 37-47 [facility] Hemoglobin in reticulocytes (mass per reticulocyte)Ordered By: Wilburton Ara on 02-12-2023 Hemoglobin (Reticulocytes) [Entitic mass] 25.8 pg 30-35 [facility] Iron measurement (mass/mass) Ordered By: Zuleykajeremy Bullock on 02-12-2023 Iron (Unsp spec) [Mass/Mass] 24 ug/dL 50-170 [facility] - Chemistry and C hemistry - challengeOrdered By: Zuleyka Bullock on 02-12-2023 Cobalamin (Vitamin B12) [Mass/Vol] 394 pg/mL 211-911 [facility] - Hematology and Cell countsOrdered By: Zuleykajeremy Bullock on 02-12-2023 Erythrocyte distribution width (RBC) [Entitic vol] 48.0 fL 35.1-43.9 [facility] Erythrocyte distribution width (RBC) [Ratio] 15.9 % 11.6-14.6 [facility] Immature granulocytes/100 WBC (Bld) 1.100 % 0.0-0.9 [facility] Comment on above: IG% - Immature Granu locytes (promyelocytes, myelocytes and metamyelocytes) > 1% indicates that a LEFT SHIFT is Present. MCH (RBC) [Entitic mass] 24.6 pg 27.0-32.0 [facility] Nucleated RBC/100 WBC (Bld) [Ratio] 0 % 0-5 [facility] MCHC Auto (RBC) [Mass/Vol]Or dered By: Zuleyka Bullock on 02-12-2023 MCHC (RBC) [Mass/Vol] 29.7 g/dL 32-36 [facility] No Panel InformationOrdered By: Zuleyka Bullock on 02-12-2023 Immature Reticulocyte Fraction 13.50 % 3.00-15.90 [facility] Reticulocyte Count 0.96 % 0.5-1.[address] [facility] Total Iron Binding Capacity 476 ug/dL 250-450 [facility] Platelets bldOrdered By: Kris Bullock on 02-12-2023 Platelets (Bld) [#/Vol] 243 10*3/uL 150-450 [facility] Serum or plasma ferritin michaela surement (mass/volume)Ordered By: Zuleyka Bullock on 02-12-2023 Ferritin [Mass/Vol] 5 ng/mL 8-252 [facility] Serum or plasma folate measu rement (mass/volume)Ordered By: Zuleyka Bullock on 02-12-2023 Folate [Mass/Vol] 3.30 ng/mL 3.1-55.4 [facility] Serum or plasma iron saturat ion measurement (mass fraction)Ordered By: Zuleyka Bullock on 02-12-2023 Iron saturation [Mass fraction] 5.0 % 15.0-55.0 [facility] Absolute lymphocyte countOrd ered By: HEALTH ASSESSMENT on 11-30-2022 Lymphocytes Auto (Unsp spec) [#/Vol] 1.23 10*3/uL 0.83-4.51 [facility] Absolute reticulocyte countO rdered By: HEALTH ASSESSMENT on 11-30-2022 Reticulocytes (Bld) [#/Vol] 0.00 10*3/uL 0-5 [facility] Basophil percentageOrdered B y: HEALTH ASSESSMENT on 11-30-2022 Basophil percentage 3.3 mg/dL 2.5-4.9 [facility] Bilirubin [Mass/Vol] 0.50 mg/dL 0.20-1.00 [facility] Comment on above: For patients on eltr ombopag therapy, use of Dimension [place] TBIL is not recommended. Chloride [Moles/Vol] 109 mmol/L 98-107 [facility] Cholesterol [Mass/Vol] 165 mg/dL <200 [facility] Comment on above: <200 mg/dL Desirable 200-240 mg/dL Borderline >240 mg/dL High Risk Glucose [Mass/Vol] 92 mg/dL 74-[address] [facility] LDH [Catalytic activity/Vol] 146 U/L 84-246 [facility] Neutrophils (Bld) [#/Vol] 1.9 10*3/uL 2.0-7.7 [facility] Potassium [Moles/Vol] 3.8 mmol/L 3.5-5.1 [facility] Protein [Mass/Vol] 7.3 g/dL 6.4-8.[address] [facility] Sodium [Moles/Vol] 139 mmol/L 136-[address] [facility] Triglyceride [Mass/Vol] 79 mg/dL <199 [facility] Comment on above: The drugs N-Acetylcy steine and Metamizole may falsely depress this assay.Serum Triglycerides Reference Interval Normal <150 mg/dL Borderline high 150 - 199 mg/dL High 200 - 499 mg/dL Very High > or = 500 mg/dL WBC (Bld) [#/Vol] 3.5 10*3/uL 4.4-11.[address] [facility] Blood erythrocytes count (nu mber/volume)Ordered By: HEALTH ASSESSMENT on 11-30-2022 RBC (Bld) [#/Vol] 4.42 10*6/uL 4.2-5.4 [facility] Blood hemoglobin measurement (mass/volume)Ordered By: HEALTH ASSESSMENT on 11-30-2022 Hemoglobin (Bld) [Mass/Vol] 10.6 g/dL 12.0-15.0 [facility] Blood leukocytes count corre cted for nucleated erythrocytes (number/volume)Ordered By: HEALTH ASSESSMENT on 11-30-2022 WBC corrected for nucl RBC (Bld) [#/Vol] [employer] [facility] Blood platelet mean volumeOr dered By: HEALTH ASSESSMENT on 11-30-2022 Platelet mean volume (Bld) [Entitic vol] 11.4 fL 6.2-12.0 [facility] Determination of erythrocyte mean corpuscular volume (MCV)Ordered By: HEALTH ASSESSMENT on 11-30-2022 MCV (RBC) [Entitic vol] 81.9 fL 81-99 [facility] Direct bilirubinOrdered By: HEALTH ASSESSMENT on 11-30-2022 Bilirubin.direct [Mass/Vol] 0.13 mg/dL 0.00-0.30 [facility] Hematocrit Auto (Bld) [Volum e fraction]Ordered By: HEALTH ASSESSMENT on 11-30-2022 Hematocrit (Bld) [Volume fraction] 36.2 % 37-47 [facility] - Chemistry and C hemistry - challengeOrdered By: HEALTH ASSESSMENT on 11-30-2022 ALP [Catalytic activity/Vol] 68 U/L 45-117 [facility] ALT [Catalytic activity/Vol] 22 U/L 13-56 [facility] Cholesterol.total/Choles terol in HDL [Mass ratio] 4.10 {ratio} [facility] CO2 [Moles/Vol] 27.0 mmol/L 21.0-32.0 [facility] Globulin (S) [Mass/Vol] 3.7 g/dL 2.2-4.2 [facility] Urea nitrogen/Creatinine [Mass ratio] 8.2 mg/mg 10-20 [facility] - Hematology and Cell countsOrdered By: HEALTH ASSESSMENT on 11-30-2022 Erythrocyte distribution width (RBC) [Entitic vol] 44.4 fL 35.1-43.9 [facility] Erythrocyte distribution width (RBC) [Ratio] 15.0 % 11.6-14.6 [facility] MCH (RBC) [Entitic mass] 24.0 pg 27.0-32.0 [facility] Nucleated RBC/100 WBC (Bld) [Ratio] 0 % 0-5 [facility] MCHC Auto (RBC) [Mass/Vol]Or dered By: HEALTH ASSESSMENT on 11-30-2022 MCHC (RBC) [Mass/Vol] 29.3 g/dL 32-36 [facility] No Panel InformationOrdered By: HEALTH ASSESSMENT on 11-30-2022 Estimated Creatinine Clearance Calc [employer] [facility] Estimated GFR (MDRD) Amer 116 mL/min >60 [facility] Comment on above: GFR Calc Estimated GFR (MDRD) Non-Af Amer 96 mL/min >60 [facility] Comment on above: Non- GFR Calc Immature Granulocyte % (Auto) [employer] [facility] Platelets bldOrdered By: HEA LTH ASSESSMENT on 11-30-2022 Platelets (Bld) [#/Vol] 239 10*3/uL 150-450 [facility] Review by pathologistOrdered By: HEALTH ASSESSMENT on 11-30-2022 Pathologist review Damian (Unsp spec) [Interp] [employer] [facility] Segmented neutrophils/100 WB C Auto (Bld)Ordered By: HEALTH ASSESSMENT on 11-30-2022 Segmented neutrophils/100 WBC (Bld) 54.0 % 47-70 [facility] Serum or plasma albumin heidi urement (mass/volume)Ordered By: HEALTH ASSESSMENT on 11-30-2022 Albumin [Mass/Vol] 3.6 g/dL 3.2-5.[address] [facility] Serum or plasma albumin/glob ulin mass ratioOrdered By: HEALTH ASSESSMENT on 11-30-2022 Albumin/Globulin [Mass ratio] 1.0 {ratio} 0.9-2.4 [facility] Serum or plasma calcium heidi urement (mass/volume)Ordered By: HEALTH ASSESSMENT on 11-30-2022 Calcium [Mass/Vol] 8.5 mg/dL 8.5-10.[address] [facility] Serum or plasma cholesterol in HDL measurement (mass/volume)Ordered By: HEALTH ASSESSMENT on 11-30-2022 Cholesterol in HDL [Mass/Vol] 40 mg/dL >40 [facility] Comment on above: The drugs N-Acetylcy steine and Metamizole may falsely depress this assay. Reference Range HDL <40 mg/dL Low HDL Cholesterol HDL >or= 60 mg/dL High HDL Cholesterol Serum or plasma cholesterol in VLDL measurement (mass/volume)Ordered By: HEALTH ASSESSMENT on 11-30-2022 Cholesterol in VLDL [Mass/Vol] 16 mg/dL 5-40 [facility] Serum or plasma creatinine m easurement (mass/volume)Ordered By: HEALTH ASSESSMENT on 11-30-2022 Creatinine [Mass/Vol] 0.73 mg/dL 0.55-1.02 [facility] Comment on above: The validity of the calculated GFR & GFRAA in patients over 70 years has not been determined. Clinical correlation is essential. Serum or plasma low density lipoprotein (LDL) cholesterol measurement (mass/volume)Ordered By: HEALTH ASSESSMENT on 11-30-2022 Cholesterol in LDL [Mass/Vol] 109 mg/dL 0-130 [facility] Serum or plasma urea nitroge n measurement (mass/volume)Ordered By: HEALTH ASSESSMENT on 11-30-2022 Urea nitrogen [Mass/Vol] 6 mg/dL 7-18 [facility] Serum or plasma uric acid me asurement (mass/volume)Ordered By: HEALTH ASSESSMENT on 11-30-2022 Urate [Mass/Vol] 4.5 mg/dL 2.6-6.0 [facility] Comment on above: The drugs N-Acetylcy steine and Metamizole may falsely depress this assay. Thin prep Papanicolaou smear with manual screeningOrdered By: HEALTH ASSESSMENT on 11-30-2022 Thin prep Papanicolaou smear with manual screening 17 U/L 15-37 [facility] Thin prep Papanicolaou smear with manual screening 3 5-15 [facility] Absolute lymphocyte counton 01-29-2022 Lymphocytes Auto (Unsp spec) [#/Vol] 1.47 10*3/uL 0.83-4.51 [facility] Work Phone: Basophil percentageon 2021 Basophils/100 WBC (Bld) 0.6 % 0-1 [facility] Work Phone: Eosinophils/100 WBC (Bld) 0.4 % 0-5 [facility] Work Phone: Neutrophils (Bld) [#/Vol] 2.8 10*3/uL 2.0-7.7 [facility] Work Phone: Neutrophils/100 WBC (Bld) 59.9 % 47-70 [facility] Work Phone: WBC (Bld) [#/Vol] 4.7 10*3/uL 4.4-11.[address] [facility] Work Phone: Blood erythrocytes count (nu mber/volume)on 01-29-2022 RBC (Bld) [#/Vol] 5.02 10*6/uL 4.2-5.4 [facility] Work Phone: Blood hemoglobin measurement (mass/volume)on 01-29-2022 Hemoglobin (Bld) [Mass/Vol] 11.5 g/dL 12.0-15.0 [facility] Work Phone: Blood lymphocytes/100 leukoc yteson 01-29-2022 Lymphocytes/100 WBC (Bld) 31.1 % 19-41 [facility] Work Phone: Blood monocytes/100 leukocyt eson 01-29-2022 Monocytes/100 WBC (Bld) 7.8 % 0-10 [facility] Work Phone: Blood platelet mean volumeon 01-29-2022 Platelet mean volume (Bld) [Entitic vol] 10.3 fL 6.2-12.0 [facility] Work Phone: Determination of erythrocyte mean corpuscular volume (MCV)on 01-29-2022 MCV (RBC) [Entitic vol] 77.5 fL 81-99 [facility] Work Phone: Hematocrit Auto (Bld) [Volum e fraction]on 01-29-2022 Hematocrit (Bld) [Volume fraction] 38.9 % 37-47 [facility] Work Phone: Iron measurement (mass/mass) on 01-29-2022 Iron (Unsp spec) [Mass/Mass] 25 ug/dL 50-170 [facility] Work Phone: Laboratory - Hematology and Cell countson 01-29-2022 Erythrocyte distribution width (RBC) [Entitic vol] 50.6 fL 35.1-43.9 [facility] Work Phone: Erythrocyte distribution width (RBC) [Ratio] 18.8 % 11.6-14.6 [facility] Work Phone: Immature granulocytes/100 WBC (Bld) 0.200 % 0.0-0.9 [facility] Work Phone: Comment on above: IG% - Immature Granu locytes (promyelocytes, myelocytes and metamyelocytes) > 1% indicates that a LEFT SHIFT is Present. MCH (RBC) [Entitic mass] 22.9 pg 27.0-32.0 [facility] Work Phone: Nucleated RBC/100 WBC (Bld) [Ratio] 0 % 0-5 [facility] Work Phone: MCHC Auto (RBC) [Mass/Vol]on 01-29-2022 MCHC (RBC) [Mass/Vol] 29.6 g/dL 32-36 [facility] Work Phone: No Panel Informationon 01-29 Total Iron Binding Capacity 520 ug/dL 250-450 [facility] Work Phone: [phone] Platelets bldon 01-29-2022 Platelets (Bld) [#/Vol] 251 10*3/uL 150-450 [facility] Work Phone: Serum or plasma ferritin michaela surement (mass/volume)on 01-29-2022 Ferritin [Mass/Vol] 5 ng/mL 8-252 [facility] Work Phone: [phone] Serum or plasma iron saturat ion measurement (mass fraction)on 01-29-2022 Iron saturation [Mass fraction] 4.8 % 15.0-55.0 [facility] Work Phone: Cervical or vagninal specime n microscopic examination by cytology stain (reported ason 11-25-2021 Cytology report Cyto stain Doc (Cvx/Vag) Comment . [facility] Work Phone: Comment on above: The Pap smear is a s creening test designed to aid in thedetection of premalignant and malignant conditions of theuterine cervix. It is not a diagnostic procedure andshould not be used as the sole means of detecting cervicalcancer. Both false-positive and false-negative reports dooccur. Laboratory - Cytologyon 11-04 Char Filter Operator Cyto stain Nom (Cvx/Vag) [ID] Comment . [facility] Work Phone: Comment on above: Olivia Pradhan, Cytot echnologist (ASCP) Laboratory - Miscellaneous t estson 11-25-2021 Service comment (Unsp spec) [Interp] Comment . [facility] Work Phone: Comment on above: This liquid based Th inPrep(R) pap test was screened withthe use of an image guided system. Service comment (Unsp spec) [Interp] . . [facility] Work Phone: No Panel Informationon 11-25 Pap Smear Additional Comments 30-65 . [facility] Work Phone: Pathology report final diagnosis Narrative Comment . [facility] Work Phone: Comment on above: NEGATIVE FOR INTRAEP ITHELIAL LESION OR MALIGNANCY. Absolute lymphocyte counton 11-24-2021 Lymphocytes Auto (Unsp spec) [#/Vol] 1.12 10*3/uL 0.83-4.51 [facility] Work Phone: Absolute reticulocyte counto n 11-24-2021 Reticulocytes (Bld) [#/Vol] 0.00 10*3/uL 0-5 [facility] Work Phone: Basophil percentageon 2021 Basophil percentage 3.5 mg/dL 2.5-4.9 [facility] Work Phone: Bilirubin [Mass/Vol] 0.50 mg/dL 0.20-1.00 [facility] Work Phone: Comment on above: For patients on eltr ombopag therapy, use of Dimension [place] TBIL is not recommended. Chloride [Moles/Vol] 109 mmol/L 98-107 [facility] Work Phone: Cholesterol [Mass/Vol] 172 mg/dL <200 [facility] Work Phone: Comment on above: <200 mg/dL Desirable 200-240 mg/dL Borderline >240 mg/dL High Risk Glucose [Mass/Vol] 88 mg/dL 74-[address] [facility] Work Phone: Neutrophils (Bld) [#/Vol] 1.9 10*3/uL 2.0-7.7 [facility] Work Phone: Potassium [Moles/Vol] 3.7 mmol/L 3.5-5.1 [facility] Work Phone: Protein [Mass/Vol] 7.4 g/dL 6.4-8.[address] [facility] Work Phone: [phone] Sodium [Moles/Vol] 140 mmol/L 136-[address] [facility] Work Phone: [phone] Triglyceride [Mass/Vol] 80 mg/dL <199 [facility] Work Phone: [phone] Comment on above: The drugs N-Acetylcy steine and Metamizole may falsely depress this assay.Serum Triglycerides Reference Interval Normal <150 mg/dL Borderline high 150 - 199 mg/dL High 200 - 499 mg/dL Very High > or = 500 mg/dL WBC (Bld) [#/Vol] 3.3 10*3/uL 4.4-11.[address] [facility] Work Phone: Bilirubin Test strip Ql (U)o n 11-24-2021 Bilirubin Ql (U) Negative Negative [facility] Work Phone: [phone] Blood erythrocytes count (nu mber/volume)on 11-24-2021 RBC (Bld) [#/Vol] 4.41 10*6/uL 4.2-5.4 [facility] Work Phone: [phone] Blood hemoglobin measurement (mass/volume)on 11-24-2021 Hemoglobin (Bld) [Mass/Vol] 9.7 g/dL 12.0-15.0 [facility] Work Phone: [phone] Blood platelet mean volumeon 11-24-2021 Platelet mean volume (Bld) [Entitic vol] 10.6 fL 6.2-12.0 [facility] Work Phone: [phone] Determination of erythrocyte mean corpuscular volume (MCV)on 11-24-2021 MCV (RBC) [Entitic vol] 75.7 fL 81-99 [facility] Work Phone: [phone] Direct bilirubinon Bilirubin.direct [Mass/Vol] 0.13 mg/dL 0.00-0.30 [facility] Work Phone: [phone] Hematocrit Auto (Bld) [Volum e fraction]on 11-24-2021 Hematocrit (Bld) [Volume fraction] 33.4 % 37-47 [facility] Work Phone: [phone] Ketones Test strip Ql (U)on 11-24-2021 Ketones Ql (U) Negative Negative [facility] Work Phone: [phone] Laboratory - Chemistry and C hemistry - challengeon 11-24-2021 ALP [Catalytic activity/Vol] 65 U/L 45-117 [facility] Work Phone: [phone] ALT [Catalytic activity/Vol] 33 U/L 13-56 [facility] Work Phone: [phone] Cholesterol.total/Choles terol in HDL [Mass ratio] 4.40 {ratio} [facility] Work Phone: [phone] CO2 [Moles/Vol] 27.0 mmol/L 21.0-32.0 [facility] Work Phone: [phone] Globulin (S) [Mass/Vol] 3.7 g/dL 2.2-4.2 [facility] Work Phone: [phone] Urea nitrogen/Creatinine [Mass ratio] 13.4 mg/mg 10-20 [facility] Work Phone: [phone] Laboratory - Hematology and Cell countson 11-24-2021 Erythrocyte distribution width (RBC) [Entitic vol] 43.4 fL 35.1-43.9 [facility] Work Phone: [phone] Erythrocyte distribution width (RBC) [Ratio] 15.8 % 11.6-14.6 [facility] Work Phone: [phone] MCH (RBC) [Entitic mass] 22.0 pg 27.0-32.0 [facility] Work Phone: [phone] Nucleated RBC/100 WBC (Bld) [Ratio] 0 % 0-5 [facility] Work Phone: [phone] MCHC Auto (RBC) [Mass/Vol]on 11-24-2021 MCHC (RBC) [Mass/Vol] 29.0 g/dL 32-36 [facility] Work Phone: [phone] Nitrite Test strip Ql (U)on 11-24-2021 Nitrite Ql (U) Negative Negative [facility] Work Phone: No Panel Informationon 11-24 Estimated GFR (MDRD) Amer 127 mL/min >60 [facility] Work Phone: Comment on above: GFR Calc Estimated GFR (MDRD) Non-Af Amer 105 mL/min >60 [facility] Work Phone: Comment on above: Non- GFR Calc Platelets bldon 11-24-2021 Platelets (Bld) [#/Vol] 274 10*3/uL 150-450 [facility] Work Phone: Protein Test strip Ql (U)on 11-24-2021 Protein Ql (U) Negative Negative [facility] Work Phone: [phone] Segmented neutrophils/100 WB C Auto (Bld)on 11-24-2021 Segmented neutrophils/100 WBC (Bld) 56.2 % 47-70 [facility] Work Phone: Serum or plasma albumin heidi urement (mass/volume)on 11-24-2021 Albumin [Mass/Vol] 3.7 g/dL 3.2-5.[address] [facility] Work Phone: Serum or plasma albumin/glob ulin mass ratioon 11-24-2021 Albumin/Globulin [Mass ratio] 1.0 {ratio} 0.9-2.4 [facility] Work Phone: Serum or plasma calcium heidi urement (mass/volume)on 11-24-2021 Calcium [Mass/Vol] 8.8 mg/dL 8.5-10.[address] [facility] Work Phone: Serum or plasma cholesterol in HDL measurement (mass/volume)on 11-24-2021 Cholesterol in HDL [Mass/Vol] 39 mg/dL >40 [facility] Work Phone: Comment on above: The drugs N-Acetylcy steine and Metamizole may falsely depress this assay. Reference Range HDL <40 mg/dL Low HDL Cholesterol HDL >or= 60 mg/dL High HDL Cholesterol Serum or plasma cholesterol in VLDL measurement (mass/volume)on 11-24-2021 Cholesterol in VLDL [Mass/Vol] 16 mg/dL 5-40 [facility] Work Phone: Serum or plasma creatinine m easurement (mass/volume)on 11-24-2021 Creatinine [Mass/Vol] 0.67 mg/dL 0.55-1.02 [facility] Work Phone: Comment on above: The validity of the calculated GFR & GFRAA in patients over 70 years has not been determined. Clinical correlation is essential. Serum or plasma low density lipoprotein (LDL) cholesterol measurement (mass/volume)on 11-24-2021 Cholesterol in LDL [Mass/Vol] 117 mg/dL 0-130 [facility] Work Phone: Serum or plasma urea nitroge n measurement (mass/volume)on 11-24-2021 Urea nitrogen [Mass/Vol] 9 mg/dL 7-18 [facility] Work Phone: Serum or plasma uric acid me asurement (mass/volume)on 11-24-2021 Urate [Mass/Vol] 3.9 mg/dL 2.6-6.0 [facility] Work Phone: Comment on above: The drugs N-Acetylcy steine and Metamizole may falsely depress this assay. Thin prep Papanicolaou smear with manual screeningon 11-24-2021 Thin prep Papanicolaou smear with manual screening 25 U/L 15-37 [facility] Work Phone: Thin prep Papanicolaou smear with manual screening 4 5-15 [facility] Work Phone: [phone] Thin prep Papanicolaou smear with manual screening 139 U/L 84-246 [facility] Work Phone: Urine blood detectionon 11-04 RBC Ql (U) Negative Negative [facility] Work Phone: [phone] Urine clarityon 11-24-2021 Clarity (U) Clear Clear [facility] Work Phone: Urine color determinationon 11-24-2021 Color (U) Straw Yellow [facility] Work Phone: Urine glucose detectionon Glucose Ql (U) Normal mg/dl Normal [facility] Work Phone: Urine leukocyte esterase det ection by dipstickon 11-24-2021 Leukocyte esterase Test strip Ql (U) Negative Negative [facility] Work Phone: Urine pHon 11-24-2021 pH (U) 7.0 [pH] 5.0 - 8.0 [facility] Work Phone: Urine specific gravity measu rementon 11-24-2021 Specific gravity (U) [Rel density] 1.005 1.002-1.030 [facility] Work Phone: Urobilinogen Auto test strip Ql (U)on 11-24-2021 Urobilinogen Ql (U) Normal mg/dl Normal [facility] Work Phone: Encounters Encounter Date Encounter Type Care Provider Facility [facility]: [facility] Start: 11-15-2024 End: 11-15-[address] Zuleyka Bullock MD Work Phone: [facility] Start: 11-15-2024 End: 11-15-[address] Zuleyka Bullock MD [facility] Start: 11-15-2024 End: 11-15-2024 [facility] Start: 11-13-2024 Registered Referred [facility] Start: 11-13-2024 [facility] Start: 03-01-2024 End: 03-01-2024 ambulatory [facility] Facility:[facility] Start: 12-22-2023 Encounter for genera l adult medical examination without abnormal findings Zuleyka Bullock [facility] Start: 12-21-2023 End: 12-21-2023 ambulatory [facility] Facility:[facility] Start: 02-12-2023 End: 02-12-2023 ambulatory [facility] Work Phone: Start: 02-12-2023 End: 02-12-2023 Patient encounter procedure [facility] uture Work Phone: Start: 11-30-2022 [facility] Start: 01-29-2022 End: 01-29-2022 ambulatory [facility] Work Phone: Start: 01-29-2022 End: 01-29-2022 Patient encounter procedure [facility] Start: 11-26-2021 End: 11-26-2021 ambulatory [facility] Work Phone: Start: 11-26-2021 End: 11-26-2021 [facility] Start: 11-24-2021 [facility] Procedures Date Procedure Procedure Detail Performing Clinician Start: 11-15-2024 Total iron binding capacity measurement Dr. Zuleyka Bullock MD Work Phone: Start: 11-13-2024 Urnls dip stick/tabl et reagent auto microscopy Dr. Zuleyka Bullock MD Work Phone: Start: 11-13-2024 Serum inorganic phos phate measurement Dr. Zuleyka Bullock MD Work Phone: Plan of Treatment Date Care Activity Detail Author Start: 11-25-2021 [facility] Work Phone: Path report.final Dx Spec [facility] Work Phone: [facility] Work Phone: Immunizations Immunization Date Immunization Notes Care Provider Fa jerome 02-17-2024 influenza, seasonal, injectable, preservative free Dr. Zuleyka Bullock MD Work Phone: [facility] 02-08-2023 influenza, injectabl e, quadrivalent, preservative free [facility] 02-09-2022 influenza, injectabl e, quadrivalent, preservative free [facility] 02-09-2022 influenza, seasonal, injectable [facility] Work Phone: 01-10-2021 influenza, injectabl e, quadrivalent, preservative free [facility] 01-10-2021 influenza, seasonal, injectable [facility] Work Phone: 05-14-2020 Covtx (Moderna) [facility] 04-16-2020 Covid ([facility]) [facility] 01-01-2020 influenza, injectabl e, quadrivalent, preservative free [facility] 01-01-2020 influenza, seasonal, injectable [facility] Work Phone: 12-29-2018 influenza, injectabl e, quadrivalent, preservative free [facility] 12-29-2018 influenza, seasonal, injectable [facility] Work Phone: 01-12-2018 influenza, injectabl e, quadrivalent, preservative free [facility] 01-12-2018 influenza, seasonal, injectable [facility] Work Phone: 04-01-2017 tetanus toxoid, redu kp diphtheria toxoid, and acellular pertussis vaccine, adsorbed [facility] Payers Date Payer Category Payer Self-pay [id number] 2023 Unknown [id number] [id number] Unknown [id number] Unknown [id number] Unknown [id number] [id number] Unknown [id number] Social History Date Type Detail Facility Start: 03-08-2019 End: 03-08-2019 Tobacco smoking status NHIS Unknown if ever smoked [facility] Start: 1985 Sex Assigned At Female [facility] Start: 03-08-2019 Tobacco smoking stat us NHIS Never smoked tobacco (finding) [facility] Goals Date Patient Goal Desired Activity /State Clinical Note 11-25-2021 Note Date & Type Note Facility 11-25-2021 Note [facility] Work Phone: Pap Smear Specimen Adequacy November 25, 2021 5:00pm Comment . Satisfactory for evaluation. Endocervical and/or squamous metaplasticcells (endocervical component) are present. Comment on above: Satisfactory for eileen luation. Endocervical and/or squamous metaplasticcells (endocervical component) are present. Clinical Note 11-25-2021 Note Date & Type Note Facility 11-25-2021 Note [facility] Work Phone: Pap Smear Specimen Adequacy November 25, 2021 4:00pm Comment . Satisfactory for evaluation. Endocervical and/or squamous metaplasticcells (endocervical component) are present. Comment on above: Satisfactory for eileen luation. Endocervical and/or squamous metaplasticcells (endocervical component) are present. Clinical Note 11-25-2021 Note Date & Type Note Facility 11-25-2021 Note [facility] Work Phone: Pap Smear Specimen Adequacy November 25, 2021 4:00pm Comment . Satisfactory for evaluation. Endocervical and/or squamous metaplasticcells (endocervical component) are present. Comment on above: Satisfactory for eileen luation. Endocervical and/or squamous metaplasticcells (endocervical component) are present. Evaluation note Note Date & Type Note Facility Evaluation note No assessment information availa ble [facility] Work Phone: Reason for referral (narrative) Note Date & Type Note Facility Reason for referral (narrative) No reason for referral information available [facility] Work Phone: Family History No Family History Records Found Relationship Condition Age at Onset Recorded Date/T jeniffer Not Specified Diabetes mellitus Unknown Myocardial infarction Unknown Hypertension Unknown Chief Complaint and Reason for Visit Chief Complaint EORDER Chief Complaint Admit Date [employer]OYEE [employer] November 13, 2024 7: 39am Summary Purpose Advance Directives No Advanced Directives Records Found Additional Source Comments Care Teams (unrecognized sec tion and content) Team Status: Active Member Role Status Dates Dr. Kimberlee Tam DO Family Provider Active Dr. Zuleyka Bullock MD Primary Care Provider Active Team Status: Active Member Role Status Dates Dr. Zuleyka Bullock MD Primary Care Provider Active Health Risk Assessment Attending Provider, Referring P claudia Active Team Status: Inactive Member Role Status Dates Dr. Zuleyka Bullock MD Primary Care Prov ider, Attending Provider, Referring Provider Active Team Status: Active Member Role/Relationship Status Dates Dr. Zuleyka Bullock MD Primary Care Provider Active Team Status: Active Member Role/Relationship Status Dates Dr. Zuleyka Bullock MD Primary Care Provider Active Start: November 13, 2024 Health Risk Assessment Attending Provider Active Start: November 13, 2024 Health Risk Assessment Referring Provider Active Start: November 13, 2024 Team Status: Inactive Member Role/Relationship Status Dates Dr. Zuleyka Bullock MD Primary Care Provider Active Start: November 15, 2024 End: November 15, 2024 Dr. Zuleyka Bullock MD Attending Provider Active Start: November 15, 2024 End: November 15, 2024 Dr. Zuleyka Bullock MD Referring Provider Active Start: November 15, 2024 End: November 15, 2024 INFORMATION SOURCE (unrecogn ized section and content) DATE CREATED AUTHOR 12/12/2024 [facility] FOR RECORDS PERTAINING TO PATIENTS WHO ARE OR HAVE BEEN ENROLLED IN A CHEMICAL DEPENDENCY/SUBSTANCEABUSE PROGRAM, SOME INFORMATION MAY BE OMITTED. This clinical summary was aggregated from multiple sources. Caution should be exercised in using it in the provision of clinical care. This summary normalizes information from multiple sources, and as a consequence, information in this document may materially change the coding, format and clinical context of patient data. In addition, data may be omitted in some cases. CLINICAL DECISIONS SHOULD BE BASED ON THE PRIMARY CLINICAL RECORDS. [facility]. provides no warranty or guarantee of the accuracy or completeness of information in this document.
[2024-12-14] MEDS: 0.9% NaCl Peripheral Flush Adult IV (07:30)
[2024-12-14] MEDS: 0.9% NaCl IVPB Med Flush (100mL) 15 ML IV (07:31)
[2024-12-14] MEDS: Iron Sucrose Complex 100 MG in 0.9% Normal Saline (100mL Bag) 100 ML 420 MG IV (07:31)
[2024-12-14 07:32] VITALS: BP 110/54; PULSE 72; RESP 16; TEMP 36.6; O2SAT 100
== END 2024-12-14 23:59 | disposition home or self-care (01) ==
LOC: MEDOUTP 06:52
PROVIDERS: PCP Family Medicine; Referring Provider Family Medicine; Visit Provider Family Medicine
DX: D50.9 Iron deficiency anemia, unspecified (principal)
CPT/HCPCS: 96365; J1756; A4216

== ENCOUNTER 2024-12-22 11:36 | Outpatient (CLI) | payer OTHER, SELFPAY ==
[2024-12-22] MEDS: 0.9% NaCl Peripheral Flush Adult IV (12:03)
[2024-12-22] MEDS: 0.9% NaCl IVPB Med Flush (100mL) 15 ML IV (12:03)
[2024-12-22] MEDS: Iron Sucrose Complex (Venofer) 100 MG in 0.9% NaCl 100 ML 420 MG IV (12:04)
[2024-12-22 12:05] VITALS: BP 115/73; PULSE 67; RESP 16; TEMP 36.1; O2SAT 100; BMI 29.2
[2024-12-22 12:25] VITALS: BP 105/60; PULSE 69
== END 2024-12-22 23:59 | disposition home or self-care (01) ==
LOC: MEDOUTP 11:36
PROVIDERS: PCP Family Medicine; Referring Provider Family Medicine; Visit Provider Family Medicine
DX: D50.9 Iron deficiency anemia, unspecified (principal)
CPT/HCPCS: 96365; J1756; A4216

== ENCOUNTER 2025-01-25 13:00 | Outpatient (CLI) | payer OTHER, SELFPAY ==
[2025-01-25 13:15] LABS: Hematocrit 33.0 % (37-47); Hemoglobin 9.6 g/dL (12.0-15.0); Immature Granulocytes Count 0.020 X10^3/uL (0.0-0.0); Mean Corp Hgb Conc 29.1 g/dL (32-36); Mean Corpuscular Volume 75.2 fL (81-99); Mean Platelet Vol. 10.1 fl (6.2-12.0); NRBC Flagged by Analyzer 0 % (0-5); Platelet Count 247 K/mm3 (150-450); RBC Distribution Width CV 18.6 % (11.6-14.6); RBC Distribution Width SD 51.0 fl (35.1-43.9); Red Blood Count 4.39 M/mm3 (4.2-5.4); White Blood Count 5.0 K/mm3 (4.4-11.0)
[2025-01-25 13:44] LABS: Ferritin 8 ng/mL (22-378); Iron 19 ug/dL (50-170); Iron Binding Capacity,Total 437 ug/dL (250-450); Iron Binding Capacity,Unsat 418 ug/dL (228-428)
== END 2025-01-25 23:59 | disposition home or self-care (01) ==
PROVIDERS: PCP Family Medicine; Referring Provider Family Medicine; Visit Provider Family Medicine
DX: D50.9 Iron deficiency anemia, unspecified (principal); N93.9 Abnormal uterine and vaginal bleeding, unspecified
CPT/HCPCS: 36415; 82728; 83540; 83550; 85025